=== PATIENT | female | born 1965 | race Caucasian/White ===

== ENCOUNTER → 2016-07-19 | Outpatient (CLI) | payer BC ==
--- NOTE | ~2016-07-19 | EKG ---
PATIENT: CRA HOFFMAN UNIT #: [id number] Ventricular Rate: 65 BPM Atrial Rate: 65 BPM P-R Interval: 158 ms QRS Duration: 90 ms Q-T Interval: 442 ms QTC Calculation(Bezet): 459 ms P [place]: 51 degrees Calculated R [place]: -143 degrees Calculated T [place]: 60 degrees Diagnosis Line: Normal sinus rhythm Diagnosis Line: Right superior axis deviation Diagnosis Line: T wave abnormality, consider anterior ischemia Diagnosis Line: Abnormal ECG Diagnosis Line: No previous ECGs available Diagnosis Line: Confirmed by CORRINE MCGOWAN MD ([id number]) on 07/19/2016 Diagnosis Line: 11:02:22 PM INTERPRETING MD: ROSLYN LINCOLN
--- NOTE | ~2016-07-19 | CR63 ---
[facility] A Service of [facility] RADIOLOGY TEXT RESULTS PATIENT: CAR HOFFMAN LOCATION: [facility] : 65 UNIT #: [id number] AGE: [address]: Eugenio Lester MD SEX: F ORDER DR: [id number] [facility] [address] [place], [place] [address] [id number] O MR#: [id number] Acc #: [id number] NAME: CAR HOFFMAN : 1965 SEX: F STUDY DATE/TIME: 07/19/2016 17:07 UNIT: [facility] ROOM: STUDY DESCRIPTION: CR Chest 2 View Attending Physician: Eugenio Lester M.D. Referring Physician: Eugenio Lester M.D. Ordering Physician: Eugenio Lester M.D. Primary Care Physician: Saba Marie A.P.R.N. MEDICAL IMAGING REPORT This report is preliminary unless electronic signature is present EXAM PA and lateral chest HISTORY Preop osteoarthritis right knee total knee replacement FINDINGS PA and lateral views of the chest obtained and compared to the study of 07/10/2014. The cardiovascular configuration remains normal and the lungs are clear. CONCLUSION Stable chest. No active disease Dictated by... Darion Lakhani M.D. THIS IS AN ELECTRONICALLY VERIFIED REPORT Darion Lakhani M.D. at 07/20/2016 12:00 PM YANNI/joe TD: 07/19/2016 22:04 JOB #: [id number] MEDICAL IMAGING REPORT Page 1 of 1 COPY
[2016-07-19 17:09] LABS: HEMATOCRIT 43.4 % (35.0-45.0); HEMOGLOBIN 14.3 gm/dL (12.0-16.0); MEAN CELL VOLUME 86.4 FL (83-96); MEAN CORPUSCULAR HEMOGLOBIN 28.4 PG (28-34); MEAN CORPUSCULAR HGB CONC 32.9 g/dL (30-36); MEAN PLATELET VOLUME 10.2 FL (6.5-11.5); RED BLOOD COUNT 5.02 X10e (3.90-5.30); RED CELL DISTRIBUTION WIDTH 13.5 % (11.0-15.5); URINE APPEARANCE CLEAR; URINE BILIRUBIN NEG (NEG); URINE BLOOD NEG (NEG); URINE COLOR YELLOW; URINE GLUCOSE NEG (NEG); URINE KETONE NEG (NEG); URINE LEUKOCYTE ESTERASE NEG (NEG); URINE NITRATE NEG (NEG); URINE PH 6.5 (5-8); URINE PROTEIN NEG (NEG); URINE SPECIFIC GRAVITY 1.009 (1.003-1.035); URINE UROBILINOGEN 0.2 MG/DL (NEG); WHITE BLOOD COUNT 8.5 X10e3 (4.0-10.5)
[2016-07-19 17:12] LABS: CULTURE INDICATED? NO; URINE SOURCE CLEAN CATCH
[2016-07-19 17:22] LABS: INR 0.9; PROTHROMBIN TIME (PATIENT) 9.9 SECONDS (9.6-11.5)
[2016-07-19 17:59] LABS: ALBUMIN SERUM 4.2 g/dL (3.5-5.0); BILIRUBIN,TOTAL 0.6 mg/dL (0.2-2.0); BUN/CREATININE RATIO 28.57; CALCIUM SERUM 9.4 mg/dL (8.4-10.2); CREATININE SERUM 0.7 mg/dL (0.6-1.4); POTASSIUM 4.6 mmol/L (3.5-5.1); PROTEIN TOTAL SERUM 7.5 g/dL (6.0-8.3)
== END | disposition home or self-care (01) ==
LOC: CRAD 16:44
PROVIDERS: Orthopaedic Surgery
DX: Z01.818 Encounter for other preprocedural examination (principal); M17.11 Unilateral primary osteoarthritis, right knee; G43.909 Migraine, unspecified, not intractable, without status migrainosus; G25.81 Restless legs syndrome; C44.310 Basal cell carcinoma of skin of unspecified parts of face; G47.30 Sleep apnea, unspecified
CPT/HCPCS: 36415; 71020; 80053; 81003; 85027; 85610; 93005